=== PATIENT | female | born 1955 | race Caucasian/White ===

== ENCOUNTER 2020-08-07 16:08 | Emergency (ER) | payer MEDICARE, BC ==
[~2020-08-07 16:08] MED LIST: AUGMENTIN 875-1 EACH PO; HYDROCODON-ACE1 EAC4 PO; KEFLEX CAP 500500 MG PO; ZOFRAN4 MG PO
[2020-08-07 17:09] LABS: HEMOGLOBIN 12.8 gm/dl (12.3-15.3); RED BLOOD COUNT 4.25 M/UL (4.00-5.10); WHITE BLOOD COUNT 7.4 K/UL (4.5-11.0)
[2020-08-07] MEDS ORDERED: AUGMENTIN 875-1 EACH PO (18:17)
== END 2020-08-07 19:21 | disposition home or self-care (01) ==
LOC: ER1 16:08
PROVIDERS: Emergency Medicine
DX: K57.32 Diverticulitis of large intestine without perforation or abscess without bleeding (principal); Z90.710 Acquired absence of both cervix and uterus
CPT/HCPCS: 80053; 81001; 83690; 85025; 96374; 96375; 99284; J1335; J2270; J2405; J7030

== ENCOUNTER 2020-10-08 10:10 | Emergency (ER) | payer MEDICARE, BC ==
[2020-10-08] MEDS ORDERED: CYCLOBENZAPRINE10 MG PO (14:12)
== END 2020-10-08 14:25 | disposition home or self-care (01) ==
LOC: ER1 10:10
DX: S39.012A Strain of muscle, fascia and tendon of lower back, initial encounter (principal); Z90.710 Acquired absence of both cervix and uterus; Z79.899 Other long term (current) drug therapy; X58.XXXA Exposure to other specified factors, initial encounter
CPT/HCPCS: 72131; 99283

== ENCOUNTER 2021-04-21 15:51 | Emergency (ER) | payer MEDICARE, BC ==
[~2021-04-21 15:51] MED LIST changes: +CYCLOBENZAPRINE10 MG PO
[2021-04-21 17:01] LABS: HEMOGLOBIN 12.9 gm/dl (12.3-15.3); RED BLOOD COUNT 4.23 M/UL (4.00-5.10)
[2021-04-21 17:19] LABS: BUN/CREATININE RATIO 7 (0-10)
[2021-04-21] MEDS ORDERED: LISINOPRIL5 MG PO (20:41)
== END 2021-04-21 21:06 | disposition home or self-care (01) ==
LOC: ER1 15:51
PROVIDERS: Emergency Medicine
DX: R51.9 Headache, unspecified (principal); R10.9 Unspecified abdominal pain; R03.0 Elevated blood-pressure reading, without diagnosis of hypertension; R68.83 Chills (without fever); Z90.5 Acquired absence of kidney; Z86.69 Personal history of other diseases of the nervous system and sense organs
CPT/HCPCS: 70450; 71045; 80053; 81001; 82550; 82553; 83874; 84484; 85025; 93005; 96374; 99284; J2405; J2550

== ENCOUNTER → 2021-09-19 | Outpatient (CLI) | payer MEDICARE, BC ==
[~2021-09-19] MED LIST changes: +LISINOPRIL5 MG PO
== END ==
LOC: MAMO 11:26
DX: Z12.31 Encounter for screening mammogram for malignant neoplasm of breast (principal); Z71.89 Other specified counseling
CPT/HCPCS: 77063; 77067